=== PATIENT | male | born 1975 | race Caucasian/White ===

== ENCOUNTER 2019-09-13 20:41 | Emergency (ER) | payer SELFPAY | END 2019-09-13 22:00 | disposition left against medical advice (07) | LOC: ER 20:41 | DX: K08.89 Other specified disorders of teeth and supporting structures (principal); Z53.21 Procedure and treatment not carried out due to patient leaving prior to being seen by health care provider ==

== ENCOUNTER → 2020-03-06 | Outpatient (CLI) | payer BC ==
--- NOTE | 2020-03-08 15:24 | US ---
EXAM DESCRIPTION: Gall Bladder: ULTRASOUND. CLINICAL HISTORY: UPPER ABD PN COMPARISON: Abdomen radiograph March 05. TECHNIQUE: Transabdominal scanning: [place]-scale and Doppler modes.. Technically difficult study due to patient body habitus. FINDINGS: Gallbladder: normal size, shape, echogenicity; no intraluminal stones or sludge. No fluid around the gallbladder. No wall thickening. 1.7 mm. Non-tender with transducer pressure. Common bile duct: caliber 3.4 mm within normal limits. Liver: Increased echogenicity; contour liver capsule smooth where seen. No fluid around the liver. Intrahepatic biliary ducts normal caliber. Doppler hepatopedal flow portal vein.. 8-mm caliber at the [place] hepatis. Long axis right lobe 13.5 cm. Pancreas: normal size Normal echogenicity. Duct not seen. Aorta: Normal proximal caliber 1.9 cm. Right kidney: long axis is 11.5 cm. Normal cortical thickness and echogenicity.. IMPRESSION: Steatosis liver diffusely but normal size. Physiologic vascularity. Normal size of the ducts. Smooth capsule. No ascites. Pancreas is unremarkable. Gallbladder and common bile duct are negative. Normal caliber of the proximal abdominal aorta. Right kidney is unremarkable.. Electronically signed by: Donis Musa MD 03/08/2020 3:22 PM CDT
== END ==
LOC: US 07:51
PROVIDERS: ATTEND Nurse Practitioner Family
DX: K76.0 Fatty (change of) liver, not elsewhere classified (principal)